=== PATIENT | female | born 1935 | race Caucasian/White ===

== ENCOUNTER → 2016-08-15 | Outpatient (REF) | payer MEDICARE | LOC: M SFHCPLAZ 13:40 | PROVIDERS: ATTEND Dermatology | DX: C44.02 Squamous cell carcinoma of skin of lip (principal); L82.1 Other seborrheic keratosis; C44.320 Squamous cell carcinoma of skin of unspecified parts of face; C44.310 Basal cell carcinoma of skin of unspecified parts of face; D04.39 Carcinoma in situ of skin of other parts of face; C44.629 Squamous cell carcinoma of skin of left upper limb, including shoulder; D23.72 Other benign neoplasm of skin of left lower limb, including hip; B07.8 Other viral warts | CPT/HCPCS: 11100; 11101; 88305; G0463 ==

== ENCOUNTER → 2016-08-29 | Outpatient (REF) | payer MEDICARE | LOC: M LAB REF 16:44 | PROVIDERS: ATTEND Internal Medicine | DX: M19.90 Unspecified osteoarthritis, unspecified site (principal) ==

== ENCOUNTER → 2018-02-04 | Outpatient (REF) | payer MEDICARE ==
[2018-02-04 19:04] LABS: RHEUMATOID FACTOR QUANT < 10.0 IU/ML (<15.0)
[2018-02-04 19:04] LABS: C REACTIVE PROTEIN QUANTITATIV < 0.30 MG/DL (0.00-0.30)
[2018-02-07 14:13] LABS: ANTINUCLEAR ANTIBODIES DIRECT Negative (Negative)
== END ==
LOC: M LAB REF 16:29
DX: M25.561 Pain in right knee (principal); M25.562 Pain in left knee; M15.9 Polyosteoarthritis, unspecified
CPT/HCPCS: 86140

== ENCOUNTER 2018-08-30 18:55 | Emergency (ER) | payer MEDICARE ==
[~2018-08-30] VITALS: Ht 157.5 cm; Wt 82.7 kg
--- NOTE | 2018-08-30 19:39 | REPVR ---
EXAM: CT Head Without Contrast EXAM DATE/TIME: 08/30/2018 7:08 PM CLINICAL HISTORY: 83 years old, female; Injury or trauma; Fall; Initial encounter; Blunt trauma (contusions or hematomas); Consciousness not specified; Additional info: Fall on thinners TECHNIQUE: Imaging protocol: Axial computed tomography images of the head without contrast. Radiation optimization: All CT scans at this facility use at least one of these dose optimization techniques: automated exposure control; mA and/or kV adjustment per patient size (includes targeted exams where dose is matched to clinical indication); or iterative reconstruction. COMPARISON: No relevant prior studies available. FINDINGS: Brain: Global cerebral atrophy is consistent with patient's age. Decreased attenuation within the white matter tracts of both cerebral hemispheres is nonspecific but typically seen with small vessel disease/chronic white matter ischemic changes of aging. No CT scan evidence of acute stroke. No intracranial hemorrhage or mass effect. Ventricles: Unremarkable. No ventriculomegaly. Bones/joints: Unremarkable. No acute fracture. Sinuses: Visualized sinuses are unremarkable. No fluid levels. Mastoid air cells: Visualized mastoid air cells are well aerated. No mastoid effusion. Soft tissues: Unremarkable. Vasculature: Atherosclerosis of the cavernous carotid arteries. IMPRESSION: No acute abnormality. Electronically signed by: Javed Tee On 08/30/2018 19:39:06 PM
[2018-08-30 19:48] LABS: BASO % 0.5 % (0.0-1.0); EOS # 0.2 10^3/uL (0.0-0.50); EOS % 2.9 % (0.0-3.0); HEMATOCRIT 36.3 % (36.0-47.0); HEMOGLOBIN 11.4 g/dl (12.0-15.5); LYMPH # 2.9 10^3/uL (1.5-4.5); LYMPH % 35.6 % (24.0-44.0); MEAN CORPUSCULAR HEMOGLOBIN 29.9 pg (27.0-33.0); MEAN CORPUSCULAR HGB CONC 31.4 g/dl (32.0-36.5); MEAN CORPUSCULAR VOLUME 95.3 fl (80.0-96.0); MONO # 0.6 10^3/uL (0.0-0.8); MONO % 7.5 % (0.0-5.0); NEUTROPHILS # 4.3 10^3/uL (1.8-7.7); NEUTROPHILS % 53.3 % (36.0-66.0); PLATELET COUNT, AUTOMATED 188 10^3/uL (150-450); RED BLOOD COUNT 3.81 10^6/uL (4.00-5.40)
[2018-08-30 19:58] LABS: INR 2.02; PROTHROMBIN TIME 23.2 SECONDS (12.1-14.4)
[2018-08-30 20:25] LABS: BLOOD UREA NITROGEN 24 MG/DL (7-18); CALCIUM LEVEL 8.6 MG/DL (8.8-10.2); CARBON DIOXIDE LEVEL 29 MEQ/L (21-32); CHLORIDE LEVEL 106 MEQ/L (98-107); CPK CREATINE PHOSPHOKINASE 99 U/L (26-192); CREATININE FOR GFR 0.77 MG/DL (0.55-1.30); ETHYL ALCOHOL (ETHANOL) 0.039 % (0.000-0.010); GLOMERULAR FILTRATION RATE > 60.0 (>32); GLUCOSE, FASTING 82 MG/DL (70-100); MB/CK RELATIVE INDEX 1.52 (< OR =4); POTASSIUM SERUM 4.1 MEQ/L (3.5-5.1); SODIUM LEVEL 142 MEQ/L (136-145); TROPONIN I < 0.02 NG/ML (< 0.10)
[2018-08-30 21:10] VITALS: O2SAT 97
[2018-08-30 21:35] VITALS: BP 146/66
--- NOTE | 2018-08-31 17:49 | ECGEPIP ---
Stationary ECG Study [facility] - ED Test Date: 2018-08-30 Pat Name: MISBAH FRASER Department: Room: - Gender: F Dock Operator: : 1935 Requested By: AKIRA ORTEGA Order Number: [id number] Reading MD: oRdy Lopez Measurements Intervals [place] Rate: 61 P: 70 ID: 215 QRS: 0 QRSD: 102 T: 16 QT: 409 QTc: 413 Interpretive Statements SINUS RHYTHM WITH FIRST DEGREE AV BLOCK NSTTW ABNORMALITY NO PRIOR FOR COMPARISON Electronically Signed On 08-31-2018 17:49:05 EDT by Rody Lopez
== END 2018-08-30 21:37 | disposition home or self-care (01) ==
LOC: M ED 18:55
DX: S00.83XA Contusion of other part of head, initial encounter (principal); W19.XXXA Unspecified fall, initial encounter; Y92.019 Unspecified place in single-family (private) house as the place of occurrence of the external cause
CPT/HCPCS: 70450; 80048; 82550; 82553; 84443; 84484; 85025; 85610; 93005; 93041; 94760; 99285; G0480

== ENCOUNTER → 2018-09-02 | Outpatient (REF) | payer MEDICARE | LOC: M LAB REF 12:17 | PROVIDERS: ATTEND Internal Medicine | DX: N39.0 Urinary tract infection, site not specified (principal) ==

== ENCOUNTER → 2019-10-29 | Outpatient (CLI) | payer MEDICARE ==
[~2019-10-29] MED LIST: E-Z-GAS II EFFERVESCENT PACKET (SODIUM BICARB./CITRIC ACID/SIMETHICONE) As Ordered ONE; E-Z-HD 98% w/w 340GM SUSP BTL As Ordered ONE; E-Z-PAQUE 96% w/w SUSP 176GM BTL As Ordered ONE
--- NOTE | 2019-10-29 16:51 | REP ---
Examination Requested: Upper G.I. Series With KUB Reason For Exam: Dysphasia Upper GI Air Contrast The procedure was performed by GAYE Jeter, under the direct supervision of Dr. Schofield. The images were reviewed with Dr. Schofield. The cupola mechanic film shows no organomegaly or pathological masses. The intestinal gas pattern appears normal. Liquid barium and gas producing crystals were given in the erect position as well as liquid barium in the prone oblique position in order to perform a double contrast upper GI examination. The oral and pharyngeal stages of deglutition were unremarkable. Esophageal transport is efficient and there is no esophagitis, stricture, or mucosal ring noted. However tertiary waves were visualized during this exam. There is no hiatal hernia. Gastroesophageal reflux was not visualized during the exam. The stomach witt are normally outlined. The rugal folds are smooth and regular. There is no gastritis, neoplasm, ulcer disease noted. The duodenal witt are normally outlined. The mucosal folds are smooth and regular. There is no duodenitis, peptic ulcer disease, or neoplasm noted. The visualized portion of the proximal small bowel appears normal in course and caliber. Impression: 1. Tertiary waves were visualized during this otherwise unremarkable upper GI. 0.5 minutes of fluoroscopy time was utilized for this procedure. Some fluoroscopic images are performed with last image hold technology. These images require no additional radiation. Reviewed by GAYE Munguia 10/29/2019 04:26 P Electronically Signed by Ru Schofield MD 10/29/2019 04:43 P
== END ==
LOC: M RAD 09:53
PROVIDERS: ATTEND Internal Medicine
DX: R13.10 Dysphagia, unspecified (principal)

== ENCOUNTER 2020-03-16 07:15 | Inpatient (IN) | payer MEDICARE ==
[~2020-03-16] VITALS: Ht 157.5 cm; Wt 78.2 kg
--- NOTE | 2020-03-16 08:03 | REP ---
INDICATION: DYSPNEA/COUGH. COMPARISON: Comparison chest x-ray September 06, 2015.. TECHNIQUE: Sitting AP portable radiograph. FINDINGS: Oxygen delivery tubing and monitoring electrodes overlie the chest. Mild cardiac enlargement is seen unchanged. The aorta is calcific and slightly tortuous. There are patchy interstitial infiltrates bilaterally. No pleural effusion is seen. No significant bony abnormality is appreciated. IMPRESSION: Patchy interstitial infiltrates noted bilaterally. Pattern is consistent with viral pneumonia. Interstitial edema is considered less likely. Heart size is mildly prominent but unchanged. <Electronically signed by Masoud Mayfield > 03/16/20 0755
[2020-03-16 08:39] LABS: BASO % 0.3 % (0.0-1.0); EOS # 0.4 10^3/uL (0.0-0.5); EOS % 3.7 % (0.0-3.0); HEMOGLOBIN 10.3 g/dl (12.0-15.5); LYMPH # 1.8 10^3/uL (1.5-5.0); LYMPH % 16.7 % (24.0-44.0); MEAN CORPUSCULAR HEMOGLOBIN 29.1 pg (27.0-33.0); MEAN CORPUSCULAR HGB CONC 30.3 g/dl (32.0-36.5); MONO % 9.9 % (0.0-5.0); NEUTROPHILS # 7.2 10^3/uL (1.5-8.5); PLATELET COUNT, AUTOMATED 188 10^3/uL (150-450); RED BLOOD COUNT 3.54 10^6/uL (4.00-5.40); WHITE BLOOD COUNT 10.5 10^3/uL (4.0-10.0)
[2020-03-16 08:49] LABS: INR 3.47; PROTHROMBIN TIME 35.7 SECONDS (12.5-14.3)
[2020-03-16] MEDS: DOCUSATE SODIUM 100MG CAPSULE PO SCH ×2 (09:00→20:52)
[2020-03-16 09:10] LABS: ALBUMIN 2.9 GM/DL (3.2-5.2); ALT/SGPT 16 U/L (12-78); BILIRUBIN,DIRECT 0.2 MG/DL (0.0-0.2); BILIRUBIN,TOTAL 0.6 MG/DL (0.2-1.0); BLOOD UREA NITROGEN 20 MG/DL (7-18); CALCIUM LEVEL 8.5 MG/DL (8.8-10.2); CARBON DIOXIDE LEVEL 30 MEQ/L (21-32); CHLORIDE LEVEL 105 MEQ/L (98-107); CK-MB VALUE MASS 1.4 NG/ML (<3.6); CPK CREATINE PHOSPHOKINASE 72 U/L (26-192); CREATININE FOR GFR 0.96 MG/DL (0.55-1.30); GLOMERULAR FILTRATION RATE 59.2 (>32); GLUCOSE, FASTING 95 MG/DL (70-100); MB/CK RELATIVE INDEX 1.94 (< OR =4); NT-PRO BNP 7498 PG/ML (<450); POTASSIUM SERUM 3.5 MEQ/L (3.5-5.1); SODIUM LEVEL 141 MEQ/L (136-145); THYROXINE (T4) 5.5 UG/DL (4.5-12.0); TROPONIN I < 0.02 NG/ML (< 0.10)
--- NOTE | 2020-03-16 10:33 | REP ---
INDICATION: shortness of breath COMPARISON: None TECHNIQUE: Axial noncontrast images from the thoracic inlet to the upper abdomen with coronal and sagittal reformations. This CT examination was performed using the following dose reduction techniques: Automated exposure control, adjustment of mA and/or kv according to the patient's size, and use of iterative reconstruction technique. FINDINGS: Diffuse moderate to significant patchy bilateral alveolar infiltrates along with reactive adenopathy most compatible with multifocal pneumonia. No effusion. No pneumothorax. Tracheobronchial tree is patent. Significant atherosclerotic changes to the thoracic aorta and coronary arteries noted along with cardiomegaly. No pericardial effusion. There is a small fat containing Bochdalek's hernia along the right posterior diaphragmatic surface. Osseous structures demonstrate degenerative changes without acute abnormality. Limited upper abdomen demonstrates normal bilateral adrenal glands. Skeletal structures demonstrate significant chronic appearing vertebral body compression fractures at T10 and and T12 unchanged compared to chest x-ray dated 2016. IMPRESSION: 1. Multifocal pneumonia with reactive adenopathy. 2. Chronic cardiomegaly and atherosclerotic disease. 3. Small chronic Bochdalek's hernia along the right posterior diaphragmatic surface. 4. 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 <Electronically signed by Selvin Gelelr > 03/16/20 0268
[2020-03-16] MEDS ORDERED: GINK60CA2 PO (10:40)
[2020-03-16] MEDS ORDERED: EMOL85CR TOP (10:40)
[2020-03-16] MEDS ORDERED: POTA10TA17 PO (10:40)
[2020-03-16] MEDS ORDERED: OMEP1CAP73 PO (10:40)
[2020-03-16] MEDS ORDERED: D31000TA2 PO (10:40)
[2020-03-16] MEDS ORDERED: BIOTENE PO (10:40)
[2020-03-16] MEDS ORDERED: ASPE4LIQ TOP (10:40)
[2020-03-16] MEDS ORDERED: FURO20TA2 PO (10:40)
[2020-03-16] MEDS ORDERED: MIRA3350 PO (10:40)
[2020-03-16] MEDS ORDERED: XALA0.007 OS (10:40)
[2020-03-16] MEDS ORDERED: TYLE650T38 PO (10:40)
[2020-03-16] MEDS ORDERED: CRAN400C PO (10:40)
[2020-03-16] MEDS ORDERED: CALCCAP4 PO (10:40)
[2020-03-16] MEDS ORDERED: FLUO20CA22 PO (10:40)
[2020-03-16] MEDS ORDERED: WARF4TAB51 PO ×2 (10:40)
[2020-03-16] MEDS ORDERED: BISO5TAB14 PO (10:40)
[2020-03-16] MEDS ORDERED: GABA-843 PO (10:40)
[2020-03-16] MEDS ORDERED: CETI-24 PO (10:40)
[2020-03-16] MEDS ORDERED: GABA-1171 PO (10:40)
[2020-03-16] MEDS ORDERED: FUROSEMIDE 40MG/4ML VIAL (J1940) IV ONE (10:45)
[2020-03-16] MEDS ORDERED: LevoFLOXacin IV 750 MG in IV 1 EA IV ONE (10:45)
[2020-03-16] MEDS ORDERED: MOM 30ML SUSPENSION UDC PO PRN (11:00)
[2020-03-16] MEDS ORDERED: ACETAMINOPHEN TAB 650MG DOSE (2X325MG) PO PRN (11:00)
[2020-03-16] MEDS ORDERED: MAALOX 30 ML SUSP *UDC PO PRN (11:00)
[2020-03-16 16:00] VITALS: BP 128/73
[2020-03-16] MEDS ORDERED: WARFARIN SOD 2MG TAB PO ONE (17:00)
--- NOTE | 2020-03-16 17:03 | ECGEPIP ---
[facility] - ED Test Date: 2020-03-16 Pat Name: MISBAH FRASER Department: Room: - Gender: Female Escrow Processor: : 1935 Requested By: JAYLEEN Rodriguez Order Number: [id number] Reading MD: Rody Lopez Measurements Intervals [place] Rate: 86 P: [place]: 0 QRS: -5 QRSD: 103 T: 22 QT: 398 QTc: 478 Interpretive Statements ATRIAL FIBRILLATION ABNORMAL RHYTHM ECG NSTTW abnormalities PRIOR SINUS RHYTHM 08/30/18 Electronically Signed on 03-16-2020 17:02:40 EST by Rody Lopez
--- NOTE | 2020-03-16 17:12 | HPEPDOC ---
[facility] Medical History & Physical Date of Admission Mar 16, 2020 Date of Service: Mar 16, 2020 Attending Physician: HIMANSHU SOUZA MD History and Physical CHIEF COMPLAINT: shortness of breath HISTORY OF PRESENT ILLNESS: Jojo Pal is an 84 year old female who presented to the ED today due to worsening shortness of breath. She is a relatively poor historian and has trouble giving me a timeline or description of her symptoms. She states she has been short of breath for months. She states she gets short of breath on exertion such as walking to the bathroom. She endorses orthopnea and PND. She denies cough, although the ED provider elicited a history of productive cough. She does note some feeling of mucous stuck in her chest. Reports some epigastric pain when laying down on her bed at night which she attributes to positioning and back pain from prior vertebral fractures. History is partial obtained from chart review as patient is a poor historian. PAST MEDICAL HISTORY: 1. Atrial fibrillation on coumadin 2. Hypertension 3. Hyperlipidemia 4. Anemia 5. Depression 6. Arthritis 7. Pulmonary fibrosis 8. Diverticulosis 9. Neurogenic bladder with chronic asymptomatic bacteremia 10. Osteoporosis 11. Cognitive impairment 12. 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 Hysterectomy 2. Rectal Fissure 3. Skin CA removal SOCIAL HISTORY: Current nonsmoker, smoked some unknown amount when younger. Drinks liquor on a regular basis, unable to quantify how much. FAMILY HISTORY: Mother of ovarian cancer. ALLERGIES: Please see below. REVIEW OF SYSTEMS: REVIEW OF SYSTEMS: CONSTITUTIONAL: Denies fevers, chills, night sweats, fatigue, unexpected change in weight. HEENT: Denies change in vision, change in hearing. CARDIOVASCULAR: Denies palpitations, lightheadedness. RESPIRATORY: Denies cough, wheezing. GASTROINTESTINAL: Denies nausea, vomiting, diarrhea, constipation, blood in stool. GENITOURINARY: Denies dysuria, urinary frequency, urinary urgency. SKIN: Denies rash, lesions. MUSCULOSKELETAL: Endorses chronic back pain from prior vertebral fractures. NEUROLOGICAL: Denies headache, dizziness, weakness. PSYCHIATRIC: Denies change in mood. HOME MEDICATIONS: Please see below. PHYSICAL EXAMINATION: VITAL SIGNS: See below GENERAL: Alert, comfortable, in no acute distress HEENT: Normocephalic, atraumatic, EOMI, moist mucous membranes NECK: Supple, trachea midline, no lymphadenopathy, no JVD appreciated. CARDIOVASCULAR: Regular rate. Irregularly irregular rhythm, normal S1 and S2. No murmurs, rubs, or gallops RESPIRATORY: Breath sounds diminished at bilateral lung bases. No wheezing, rhonchi, or rales appreciated. ABDOMEN: Obese, soft, nontender, nondistended, bowel sounds present, no masses or hepatosplenomegaly appreciated EXTREMITIES: Bilateral 1+ pitting edema up to the knees. Pulses 2+/4 in bilateral upper and lower extremities. SKIN: [place], warm, dry NEUROLOGIC: Alert and oriented x3 to person, place, and time. No focal deficits appreciated PSYCHIATRIC: Mood and affect appropriate LABORATORY DATA: See below. IMAGING: - CXR : Patchy interstitial infiltrates noted bilaterally. Pattern is consistent with viral pneumonia. Interstitial edema is considered less likely. Heart size is mildly prominent but unchanged. - Chest CT: 1. Multifocal pneumonia with reactive adenopathy. 2. Chronic cardiomegaly and atherosclerotic disease. 3. Small chronic Bochdalek's hernia along the right posterior diaphragmatic surface. 4. 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 MICROBIOLOGY: Please see below. ASSESSMENT: 84-year-old female with a history of atrial fibrillation on warfarin, CHF, pulmonary fibrosis who presented with worsening shortness of breath found to have elevated BNP and interstitial infiltrates concerning for acute CHF exacerbation vs atypical PNA admitted for further evaluation and treatment. PLAN: 1. Shortness of breath likely 2/2 acute on chronic CHF, less likely pulm fibrosis progression vs atypical PNA - procalcitonin low, bacterial PNA unlikely. resp panel negative. blood cultures x2 and sputum culture pending. No antibiotics at this time. - atypical PNA workup pending including legionella, mycoplasma, and chlamydia. - BNP elevated at 7498, no baseline to compare - echocardiogram ordered to assess her degree of CHF and optimize treatment. - continuous pulse ox and telemetry monitoring. - IV lasix 40mg BID with goal of net negative 1.5-2 L/day 2. CHF - unclear etiology, no prior echo to review if systolic or diastolic - obtain echo as noted above. - 2 liter fluid restriction with low sodium diet - monitor I&O daily. daily weights. - IV lasix as noted above 3. Pulmonary fibrosis - on patient's medical history, but she is not maintained on any inhalers - minimal smoking hx per patient - if symptoms do not improve with IV lasix, consider steroids for exacerbation of these conditions. 4. Epigastric pain - functional pain from positioning vs worsened GERD. Increase PPI to 40mg omeprazole. 5. Neurogenic bladder with chronic catheter - Morin catheter while inpatient - UA chronically appears infected, would not treat with antibiotics as she has no UTI symptoms 6. Chronic atrial fibrillation - Rate controlled - Continue warfarin, monitor INR to maintain 2.0-3.0 - Hold Zebeta in the setting of acute CHF 7. Chronic anemia - trend H/H daily. consider transfusion for Hg<7 - check iron studies in the morning 8. Depression/anxiety - continue home fluoxetine and gabapentin DVT Prophylaxis: full anticoagulation on warfarin as noted above DISPOSITION: admitted inpatient to med/surg, expect > 2 midnight stay Vital Signs Vital Signs Date Time Temp Pulse Resp B/P (MAP) Pulse Ox O2 Delivery O2 Flow Rate FiO2 03/16/20 14:08 98.1 94 22 179/74 (109) 97 Nasal Cannula 1.5 Laboratory Data Labs 24H Laboratory Tests 2 03/16/20 08:15: Procalcitonin <0.05 03/16/20 08:16: Immature Granulocyte % (Auto) 0.4, Neutrophils (%) (Auto) 69.0H, Lymphocytes (%) (Auto) 16.7L, Monocytes (%) (Auto) 9.9H, Eosinophils (%) (Auto) 3.7H, Basophils (%) (Auto) 0.3, Neutrophils # (Auto) 7.2, Lymphocytes # (Auto) 1.8, Monocytes # (Auto) 1.0H, Eosinophils # (Auto) 0.4, Basophils # (Auto) 0.0, Nucleated Red Blood Cells % (auto) 0.0, Prothrombin Time 35.7H, Prothromb Time International Ratio 3.47, Anion Gap 6L, Glomerular Filtration Rate 59.2, Lactic Acid Level 1.2, Calcium Level 8.5L, Total Bilirubin 0.6, Direct Bilirubin 0.2, Aspartate Amino Transf (AST/SGOT) 15, Alanine Aminotransferase (ALT/SGPT) 16, Alkaline Phosphatase 86, Total Creatine Kinase 72, Creatine Kinase MB 1.4, Creatine Kinase MB Relative Index 1.94, Troponin I < 0.02, IF-Dxr-I-Type Natriuretic Peptide 7498H, Total Protein 7.0, Albumin 2.9L, Albumin/Globulin Ratio 0.7L, Thyroid Stimulating Hormone (TSH) 2.070, Thyroxine (T4) 5.5 03/16/20 11:20: Urine Color YELLOW, Urine Appearance CLOUDYH, Urine pH 6.0, Urine Specific [place] 1.011, Urine Protein NEGATIVE, Urine Glucose (UA) NEGATIVE, Urine Ketones NEGATIVE, Urine Blood 1+H, Urine Nitrite POSITIVEH, Urine Bilirubin NEGATIVE, Urine Urobilinogen 0.2, Urine Leukocyte Esterase 3+H, Urine WBC (Auto) 127H, Urine RBC (Auto) 9H, Urine Hyaline Casts (Auto) 3, Urine Bacteria (Auto) 2+H, Urine Squamous Epithelial Cells 1, Urine Mucus (Auto) SMALL, Urine Sperm (Auto) CBC/BMP Laboratory Tests 03/16/20 08:16 Microbiology Microbiology 03/16/20 Urine Culture, Received Pending 03/16/20 Blood Culture, Received Pending 03/16/20 Respiratory Virus Panel (PCR) (LENNOX) - Final, Complete 03/16/20 Blood Culture, Received Pending Home Medications Scheduled Acetaminophen (Tylenol 8 Hour) 650 Mg Tablet.er, 650 MG PO BID Bisoprolol Fumarate (Bisoprolol Fumarate) 5 Mg Tablet, 2.5 MG PO QHS Calcium Carbonate/Vitamin D3 (Calcium 600 + Vit D 400 Softgl) 1 Each Capsule, 1 CAP PO BID Cetirizine HCl (Cetirizine HCl) 10 Mg Tablet, 10 MG PO QHS Cholecalciferol (Vitamin D3) (Vitamin D3) 1,000 Unit Tablet, 4,000 UNITS PO DAILY Ciprofloxacin HCl (Ciprofloxacin HCl) 500 Mg Tablet, 500 MG PO BID Cranberry (Cranberry) 400 Mg Capsule, 400 MG PO DAILY Emollient Combination No.114 (Eucerin Advanced Repair) 85 Gm Cream..g., 1 DOSE TOP DAILY Fluoxetine Hcl (Fluoxetine HCl) 20 Mg Capsule, 20 MG PO QHS Furosemide (Furosemide) 40 Mg Tablet, 40 MG PO BID Gabapentin (Gabapentin) 100 Mg Capsule, 100 MG PO QAM Gabapentin (Gabapentin) 300 Mg Capsule, 300 MG PO QHS Ginkgo Biloba (Ginkgo Biloba) 60 Mg Capsule, 120 MG PO DAILY Latanoprost (Xalatan) 0.005% 2.5ML Drops, 1 DROP OS QHS Omeprazole (Omeprazole) 20 Mg Capsule.dr, 20 MG PO QHS Potassium Chloride (Potassium Chloride) 10 Meq Tab.er.prt, 10 MEQ PO DAILY Warfarin Sodium (Warfarin Sodium) 2 Mg Tablet, 2 MG PO DAILY Scheduled PRN Lidocaine HCl (Aspercreme Lidocaine) 73 Ml Liqd.estefany, 1 DOSE TOP QID PRN for PAIN APPLY TO AREAS OF PAIN Polyethylene Glycol 3350 (Miralax) 119 Gm Powder, 17 GM PO DAILY PRN for CONSTIPATION [Biotene] , 1 LOZENGE PO PRN PRN for DRY MOUTH Allergies Coded Allergies: No Known Allergies (Verified Allergy, Unknown, 08/30/18) A-FIB/CHADSVASC A-FIB History Current/History of A-Fib/PAF?: Yes Current PO Anticoag Therapy: Yes GME ATTESTATION GME ATTESTATION My faculty preceptor for this patient encounter was physically present during the encounter and was fully available. All aspects of the patient interview, examination, medical decision making process, and medical care plan development were reviewed and approved by the faculty preceptor. The faculty preceptor is aware and concurs with the plan as stated in the body of this note and will attest to such by his/her cosignature. ATTENDING NOTE Pt was seen and examined at the bedside with the residents/students at the bedside by me personally. Agree with the assessment and plan. EDGAR BETTS D.O. Mar 16, 2020 15:56 HIMANSHU SOUZA MD Mar 22, 2020 11:15
[2020-03-16] MEDS: FUROSEMIDE 40MG/4ML VIAL (J1940) IV SCH (17:37)
[2020-03-16] MEDS: GABAPENTIN 300 MG CAP PO SCH (20:52)
[2020-03-16] MEDS: FLUoxetine 20 MG CAP PO SCH (20:52)
[2020-03-16] MEDS: CETIRIZINE (ZyrTEC) 10 MG TAB PO SCH (20:52)
[2020-03-16 22:00] VITALS: BP 133/78
[2020-03-17 06:00] VITALS: BP 133/54
[2020-03-17 07:39] LABS: INR 3.42; PROTHROMBIN TIME 35.3 SECONDS (12.5-14.3)
[2020-03-17 07:40] LABS: HEMATOCRIT 38.5 % (36.0-47.0); HEMOGLOBIN 11.9 g/dl (12.0-15.5); MEAN CORPUSCULAR HEMOGLOBIN 29.7 pg (27.0-33.0); MEAN CORPUSCULAR HGB CONC 30.9 g/dl (32.0-36.5); PLATELET COUNT, AUTOMATED 221 10^3/uL (150-450); RED BLOOD COUNT 4.01 10^6/uL (4.00-5.40); WHITE BLOOD COUNT 11.8 10^3/uL (4.0-10.0)
[2020-03-17 07:59] LABS: ALBUMIN 3.1 GM/DL (3.2-5.2); ALT/SGPT 14 U/L (12-78); BILIRUBIN,TOTAL 0.9 MG/DL (0.2-1.0); BLOOD UREA NITROGEN 16 MG/DL (7-18); CALCIUM LEVEL 8.4 MG/DL (8.8-10.2); CARBON DIOXIDE LEVEL 30 MEQ/L (21-32); CHLORIDE LEVEL 99 MEQ/L (98-107); CREATININE FOR GFR 0.94 MG/DL (0.55-1.30); FERRITIN 82 NG/ML (8-252); GLOMERULAR FILTRATION RATE > 60.0 (>32); GLUCOSE, FASTING 75 MG/DL (70-100); IRON (FE) 26 UG/DL (50-170); PERCENT SATURATION 9.2 % (13.2-45.0); POTASSIUM SERUM 3.4 MEQ/L (3.5-5.1); SODIUM LEVEL 140 MEQ/L (136-145); TOTAL IRON BINDING CAPACITY 282 UG/DL (250-450); TOTAL PROTEIN 7.1 GM/DL (6.4-8.2)
[2020-03-17] MEDS: GABAPENTIN 100 MG CAP PO SCH (08:05)
[2020-03-17] MEDS: OMEPRAZOLE 20 MG CAP PO SCH (08:05)
[2020-03-17] MEDS: DOCUSATE SODIUM 100MG CAPSULE PO SCH ×2 (08:05→20:11)
[2020-03-17] MEDS: POTASSIUM CHLORIDE 10 MEQ SR TABLET PO SCH (08:05)
[2020-03-17] MEDS: FUROSEMIDE 40MG/4ML VIAL (J1940) IV SCH (08:06)
[2020-03-17] MEDS ORDERED: POTASSIUM CHLORIDE 10 MEQ SR TABLET PO ONE (09:15)
--- NOTE | 2020-03-17 11:14 | IPNPDOC ---
Text Note Date of Service The patient was seen on 03/17/20. NOTE SUBJECTIVE: Patient was seen and examined this morning at beside. She states her shortness of breath is improved from yesterday. She has not noticed any change in her lower extremity swelling. OBJECTIVE: VITAL SIGNS: See below GENERAL: Alert, comfortable, in no acute distress HEENT: Normocephalic, atraumatic, EOMI, moist mucous membranes NECK: Supple, trachea midline, no lymphadenopathy, no JVD appreciated. CARDIOVASCULAR: Regular rate. Irregularly irregular rhythm, normal S1 and S2. No murmurs, rubs, or gallops RESPIRATORY: Breath sounds diminished at bilateral lung bases, improved from yesterday. No wheezing, rhonchi, or rales appreciated. ABDOMEN: Obese, soft, nontender, nondistended, bowel sounds present, no masses or hepatosplenomegaly appreciated EXTREMITIES: Bilateral 1+ pitting edema up to the knees. Pulses 2+/4 in bi lateral upper and lower extremities. NEUROLOGIC: Alert and oriented x3 to person, place, and time. No focal deficits appreciated PSYCHIATRIC: Mood and affect appropriate ASSESSMENT/PLAN: 84-year-old female with a history of atrial fibrillation on warfarin, CHF, pulmonary fibrosis who presented with worsening shortness of breath found to have elevated BNP and interstitial infiltrates concerning for acute CHF exacerbation vs atypical PNA admitted for further evaluation and treatment. # Shortness of breath likely 2/2 acute on chronic CHF, less likely pulm fibrosis progression vs atypical PNA - procalcitonin low, bacterial PNA unlikely. resp panel negative. blood cultures x2 pending. No antibiotics at this time. - atypical PNA workup pending including legionella, mycoplasma, and chlamydia. - BNP elevated at 7498, no baseline to compare - echocardiogram ordered to assess her degree of CHF and optimize treatment. - continuous pulse ox and telemetry monitoring. - IV lasix 40mg daily with goal of net negative 1.5-2 L/day # CHF - unclear etiology, no prior echo to review if systolic or diastolic - obtain echo as noted above. - 2 liter fluid restriction with low sodium diet - monitor I&O daily. daily weights. - IV lasix as noted above # Pulmonary fibrosis - on patient's medical history, but she is not maintained on any inhalers - minimal smoking hx per patient - if symptoms do not improve with IV lasix, consider steroids for exacerbation of these conditions. # Epigastric pain - functional pain from positioning vs worsened GERD. Increase PPI to 40mg om eprazole. # Neurogenic bladder with chronic catheter - Morin catheter while inpatient - UA chronically appears infected, would not treat with antibiotics as she has no UTI symptoms # Chronic atrial fibrillation - Rate controlled - hold warfarin as her INR is supratherapeutic, monitor INR to maintain 2.0-3.0 - Hold Zebeta in the setting of acute CHF # Chronic anemia - trend H/H daily. consider transfusion for Hg<7 - check iron studies in the morning # Depression/anxiety - continue home fluoxetine and gabapentin DVT Prophylaxis: full anticoagulation on warfarin as noted above DISPOSITION: pending echocardiogram results, PT eval VS,Fishbone, I+O VS, Fishbone, I+O Laboratory Tests 03/17/20 06:49 Vital Signs Date Time Temp Pulse Resp B/P (MAP) Pulse Ox O2 Delivery O2 Flow Rate FiO2 03/17/20 08:00 2.0 03/17/20 06:00 98.2 88 18 133/54 (80) 90 Nasal Cannula I&O- Last 24 Hours up to 6 AM 03/17/20 06:00 Intake Total 1020 ml Output Total 3625 ml Balance -2605 ml GME ATTESTATION GME ATTESTATION My faculty preceptor for this patient encounter was physically present during the encounter and was fully available. All aspects of the patient interview, examination, medical decision making process, and medical care plan development were reviewed and approved by the faculty preceptor. The faculty preceptor is aware and concurs with the plan as stated in the body of this note and will attest to such by his/her cosignature. ATTENDING NOTE Pt was seen and examined at the bedside with the residents/students at the bedside by me personally. Agree with the assessment and plan. EDGAR BETTS D.O. Mar 17, 2020 11:14 HIMANSHU SOUZA MD Mar 22, 2020 11:18
[2020-03-17 14:00] VITALS: BP 136/63
[2020-03-17] MEDS ORDERED: WARFARIN SOD 2MG TAB PO SCH (17:00)
[2020-03-17] MEDS: GABAPENTIN 300 MG CAP PO SCH (20:10)
[2020-03-17] MEDS: MIRALAX *UNIT DOSE* 17GM PACKET PO SCH (20:10)
[2020-03-17] MEDS: FLUoxetine 20 MG CAP PO SCH (20:10)
[2020-03-17] MEDS: CETIRIZINE (ZyrTEC) 10 MG TAB PO SCH (20:10)
--- NOTE | 2020-03-17 21:04 | REP ---
INDICATION: abdominal discomfort, fluid overload. Rule out ascites. COMPARISON: None. TECHNIQUE: Four quadrant abdominal survey for ascites. FINDINGS: Four quadrant abdominal survey sonography shows no evidence of visible ascites. IMPRESSION: No ascites seen. <Electronically signed by Masoud Mayfield > 03/17/20 2100
[2020-03-17 22:00] VITALS: BP 124/73
[2020-03-18 06:00] VITALS: BP 105/53
[2020-03-18 06:03] LABS: HEMATOCRIT 35.1 % (36.0-47.0); HEMOGLOBIN 10.8 g/dl (12.0-15.5); MEAN CORPUSCULAR HGB CONC 30.8 g/dl (32.0-36.5); MEAN CORPUSCULAR VOLUME 94.1 fl (80.0-96.0); PLATELET COUNT, AUTOMATED 201 10^3/uL (150-450); RED BLOOD COUNT 3.73 10^6/uL (4.00-5.40); WHITE BLOOD COUNT 10.1 10^3/uL (4.0-10.0)
[2020-03-18 06:22] LABS: INR 3.21; PROTHROMBIN TIME 33.6 SECONDS (12.5-14.3)
[2020-03-18 06:28] LABS: ALBUMIN 2.7 GM/DL (3.2-5.2); ALT/SGPT 13 U/L (12-78); BILIRUBIN,TOTAL 0.9 MG/DL (0.2-1.0); BLOOD UREA NITROGEN 19 MG/DL (7-18); CALCIUM LEVEL 8.7 MG/DL (8.8-10.2); CARBON DIOXIDE LEVEL 33 MEQ/L (21-32); CHLORIDE LEVEL 102 MEQ/L (98-107); CREATININE FOR GFR 0.91 MG/DL (0.55-1.30); GLOMERULAR FILTRATION RATE > 60.0 (>32); GLUCOSE, FASTING 92 MG/DL (70-100); POTASSIUM SERUM 3.5 MEQ/L (3.5-5.1); SODIUM LEVEL 139 MEQ/L (136-145); TOTAL PROTEIN 6.4 GM/DL (6.4-8.2)
--- NOTE | 2020-03-18 09:14 | IPNPDOC ---
Text Note Date of Service The patient was seen on 03/18/20. NOTE SUBJECTIVE: Patient was seen and examined this morning at beside. She reports some improvement of her shortness of breath. Her daughter is at besides and we discussed the plan of care moving forward. OBJECTIVE: VITAL SIGNS: See below GENERAL: Alert, comfortable, in no acute distress HEENT: Normocephalic, atraumatic, EOMI, moist mucous membranes NECK: Supple, trachea midline, no lymphadenopathy, no JVD appreciated. CARDIOVASCULAR: Regular rate. Irregularly irregular rhythm, normal S1 and S2. No murmurs, rubs, or gallops RESPIRATORY: Breath sounds diminished at bilateral lung bases, improved from yesterday. No wheezing, rhonchi, or rales appreciated. ABDOMEN: Obese, soft, nontender, nondistended, bowel sounds present, no masses or hepatosplenomegaly appreciated EXTREMITIES: Bilateral 1+ pitting edema up to the knees. Pulses 2+/4 in bilateral upper and lower extremities. NEUROLOGIC: No focal deficits appreciated PSYCHIATRIC: Mood and affect appropriate ASSESSMENT/PLAN: 84-year-old female with a history of atrial fibrillation on warfarin, CHF, pulmonary fibrosis who presented with worsening shortness of breath found to have elevated BNP and interstitial infiltrates concerning for acute CHF exacer bation vs atypical PNA admitted for further evaluation and treatment. # Shortness of breath likely 2/2 acute on chronic CHF, less likely pulm fibrosis progression vs atypical PNA - procalcitonin low, bacterial PNA unlikely. resp panel negative. blood cultures x2 pending. No antibiotics at this time. - atypical PNA workup pending including legionella, mycoplasma, and chlamydia. - BNP elevated at 7498, no baseline to compare - echocardiogram ordered to assess her degree of CHF and optimize treatment. - continuous pulse ox and telemetry monitoring. - IV lasix 40mg daily with goal of net negative 1.5-2 L/day # E. coli UTI - daughter reports frequent UTI usually resolves with cipro - will start ciprofloxacin day #1 of 5 # CHF - unclear etiology, no prior echo to review if systolic or diastolic - obtain echo as noted above. - 2 liter fluid restriction with low sodium diet - monitor I&O daily. daily weights. - IV lasix as noted above # Pulmonary fibrosis - daughter reports macrobid enduced. not on any inhalers - f/u outpatient with pulmonology # Dementia - some increased confusions compared to baseline per daughter - speech cog eval. - live at home with . pt does not want halfway or assisted living. PFS consult # Epigastric pain - functional pain from positioning vs worsened GERD. Increase PPI to 40mg omeprazole. # Neurogenic bladder with chronic catheter - Morin catheter while inpatient, will trial straight cath prior to discharge # Chronic atrial fibrillation - Rate controlled, restart Zebeta - hold warfarin as her INR is supratherapeutic, monitor INR to maintain 2.0-3.0 # Chronic anemia - trend H/H daily. consider transfusion for Hg<7 - likely anemia of chronic disease based on iron studies # Depression/anxiety - continue home fluoxetine and gabapentin DVT Prophylaxis: full anticoagulation on warfarin as noted above DISPOSITION: pending echocardiogram results, PT eval, speech cog eval VS,Fishbone, I+O VS, Fishbone, I+O Laboratory Tests 03/18/20 05:45 Vital Signs Date Time Temp Pulse Resp B/P (MAP) Pulse Ox O2 Delivery O2 Flow Rate FiO2 03/18/20 06:00 98.4 116 18 105/53 (70) 93 Nasal Cannula 2.0 I&O- Last 24 Hours up to 6 AM 03/18/20 06:00 Intake Total 1340 ml Output Total 825 ml Balance 515 ml EDGAR BETTS D.O. Mar 18, 2020 09:14
[2020-03-18] MEDS: CIPROFLOXACIN 500MG TABLET PO SCH ×2 (09:33→20:09)
[2020-03-18] MEDS: MIRALAX *UNIT DOSE* 17GM PACKET PO SCH (09:33)
[2020-03-18] MEDS: POTASSIUM CHLORIDE 10 MEQ SR TABLET PO SCH (09:34)
[2020-03-18] MEDS: DOCUSATE SODIUM 100MG CAPSULE PO SCH ×2 (09:34→20:09)
[2020-03-18] MEDS: OMEPRAZOLE 20 MG CAP PO SCH (09:34)
[2020-03-18] MEDS: GABAPENTIN 100 MG CAP PO SCH (09:34)
[2020-03-18 12:00] VITALS: O2SAT 91
[2020-03-18 14:00] VITALS: BP 119/59
[2020-03-18] MEDS ORDERED: FUROSEMIDE 40MG/4ML VIAL (J1940) IV ONE (16:15)
[2020-03-18] MEDS: CETIRIZINE (ZyrTEC) 10 MG TAB PO SCH (20:09)
[2020-03-18] MEDS: FLUoxetine 20 MG CAP PO SCH (20:09)
[2020-03-18] MEDS: GABAPENTIN 300 MG CAP PO SCH (20:09)
[2020-03-18 20:10] VITALS: BP 131/75
[2020-03-18] MEDS ORDERED: BISOPROLOL FUM 2.5 MG PER 1/2TAB PO SCH (21:00)
[2020-03-18 22:00] VITALS: BP 133/58
[2020-03-19 06:00] VITALS: BP 129/82
[2020-03-19 06:07] LABS: HEMATOCRIT 37.1 % (36.0-47.0); HEMOGLOBIN 11.5 g/dl (12.0-15.5); MEAN CORPUSCULAR HEMOGLOBIN 29.5 pg (27.0-33.0); MEAN CORPUSCULAR VOLUME 95.1 fl (80.0-96.0); PLATELET COUNT, AUTOMATED 217 10^3/uL (150-450); WHITE BLOOD COUNT 11.2 10^3/uL (4.0-10.0)
[2020-03-19 06:18] LABS: INR 2.56; PROTHROMBIN TIME 28.1 SECONDS (12.5-14.3)
[2020-03-19 06:40] LABS: ALBUMIN 2.6 GM/DL (3.2-5.2); ALT/SGPT 13 U/L (12-78); BILIRUBIN,TOTAL 0.7 MG/DL (0.2-1.0); BLOOD UREA NITROGEN 21 MG/DL (7-18); CALCIUM LEVEL 8.2 MG/DL (8.8-10.2); CARBON DIOXIDE LEVEL 33 MEQ/L (21-32); CHLORIDE LEVEL 101 MEQ/L (98-107); CREATININE FOR GFR 0.92 MG/DL (0.55-1.30); GLOMERULAR FILTRATION RATE > 60.0 (>32); GLUCOSE, FASTING 101 MG/DL (70-100); POTASSIUM SERUM 3.4 MEQ/L (3.5-5.1); SODIUM LEVEL 140 MEQ/L (136-145)
[2020-03-19] MEDS ORDERED: POTASSIUM CHLORIDE 10 MEQ SR TABLET PO ONE (08:00)
[2020-03-19] MEDS: MIRALAX *UNIT DOSE* 17GM PACKET PO SCH (09:00)
[2020-03-19] MEDS: OMEPRAZOLE 20 MG CAP PO SCH (09:39)
[2020-03-19] MEDS: CIPROFLOXACIN 500MG TABLET PO SCH (09:40)
[2020-03-19] MEDS: POTASSIUM CHLORIDE 10 MEQ SR TABLET PO SCH (09:40)
[2020-03-19] MEDS: GABAPENTIN 100 MG CAP PO SCH (09:40)
[2020-03-19] MEDS: DOCUSATE SODIUM 100MG CAPSULE PO SCH (09:40)
[2020-03-19] MEDS: FUROSEMIDE 40 MG TAB PO SCH ×2 (09:41→16:24)
[2020-03-19] MEDS ORDERED: JANT2TAB PO (11:06)
[2020-03-19] MEDS ORDERED: CIPR-249 PO (11:06)
[2020-03-19] MEDS ORDERED: FURO40TA2 PO ×2 (11:06→15:07)
[2020-03-19] MEDS ORDERED: WARF4TAB51 PO (15:07)
[2020-03-19] MEDS ORDERED: CIPR500T3 PO (15:07)
--- NOTE | 2020-03-19 16:08 | DS.PDOC ---
Discharge Summary General Date of Admission Mar 16, 2020 at 10:52 Date of Discharge 03/19/2020 Primary Care Physician: Joaquina Rivera Attending Physician: HIMANSHU SOUZA MD Discharge Summary PROCEDURES PERFORMED DURING STAY: None. ADMITTING DIAGNOSES: 1. Shortness of breath likely 2/2 acute on chronic CHF, less likely pulm fibrosis progression vs atypical PNA 2. CHF 3. Pulmonary fibrosis 4. Epigastric pain 5. Neurogenic bladder with chronic catheter 6. Chronic atrial fibrillation 7. Chronic anemia 8. Depression/anxiety DISCHARGE DIAGNOSES: 1. Shortness of breath 2/2 exacerbation of CHF, improved 2. CHF 3. Pulmonary fibrosis 4. Epigastric pain, improved 5. Neurogenic bladder with chronic catheter 6. Chronic atrial fibrillation 7. Chronic anemia 8. Depression/anxiety 9. UTI secondary to E.coli COMPLICATIONS/CHIEF COMPLAINT: Atypical Pneumonia/Decompensated Heart Failure. HISTORY OF PRESENT ILLNESS: Jojo Pal is an 84 year old female who p resented to the ED today due to worsening shortness of breath. She is a relatively poor historian and has trouble giving me a timeline or description of her symptoms. She states she has been short of breath for months. She states she gets short of breath on exertion such as walking to the bathroom. She endorses orthopnea and PND. She denies cough, although the ED provider elicited a history of productive cough. She does note some feeling of mucous stuck in her chest. Reports some epigastric pain when laying down on her bed at night which she attributes to positioning and back pain from prior vertebral fractures. In the emergency department, workup revealed an elevated BNP with imaging findi ngs noted above. Hospitalist team was called for admission and further management. HOSPITAL COURSE: Patient was admitted to the hospital, started on IV Lasix for diuresis as she was found to be fluid overloaded due to an exacerbation of CHF. The patient performs intermittent catheterization at home for neurogenic bladder, and a Morin catheter was placed for careful monitoring and patient comfort while on IV diuretics. Procalcitonin level was ordered and found to be low, indicating a very low suspicion for bacterial pneumonia. No antibiotics were continued at that time. Blood cultures 2 were drawn and remained negative for 5 days. Echocardiogram was ordered to evaluate her heart failure and results are noted below. She was maintained on telemetry and found to be in atrial fibrillation with good rate control. The patient's daughter noted that the patient had some confusion compared to her home baseline and additionally was found to have a positive urine culture for E coli. The patient's daughter noted that the patient often presents with confusion when she has a UTI. The patient was started on ciprofloxacin 500 mg twice a day and will complete a 5 day course of this. Over the course of her admission, the patient's shortness of breath improved. She continued to require oxygen via nasal cannula. The patient also worked with physical therapy who deemed it appropriate for the patient to attend rehabilitation prior to discharge home. She'll be discharged on an increased dose of oral Lasix to help maintain her fluid status. During the patient's admission, her INR was also found to be above therapeutic level. Her warfarin was held for the first few days. On 03/19/2020. The patient's warfarin was continued at a dose of 2 mg daily. We will maintain her on this dose and stress levels be rechecked in one week. DISCHARGE MEDICATIONS: Please see below. ALLERGIES: Please see below. PHYSICAL EXAMINATION ON DISCHARGE: VITAL SIGNS: Please see below. GENERAL: Alert, comfortable, in no acute distress HEENT: Normocephalic, atraumatic, EOMI, moist mucous membranes NECK: Supple, trachea midline, no lymphadenopathy, no JVD appreciated. CARDIOVASCULAR: Regular rate. Irregularly irregular rhythm, normal S1 and S2. No murmurs, rubs, or gallops RESPIRATORY: Breath sounds diminished at bilateral lung bases, improved from yesterday. No wheezing, rhonchi, or rales appreciated. ABDOMEN: Obese, soft, nontender, nondistended, bowel sounds present, no masses or hepatosplenomegaly appreciated EXTREMITIES: Bilateral 1+ pitting edema up to the knees. Pulses 2+/4 in bilateral upper and lower extremities. NEUROLOGIC: No focal deficits appreciated PSYCHIATRIC: Mood and affect appropriate LABORATORY DATA: Please see below. IMAGING: - CXR : Patchy interstitial infiltrates noted bilaterally. Pattern is consistent with viral pneumonia. Interstitial edema is considered less likely. Heart size is mildly prominent but unchanged. - Chest CT: 1. Multifocal pneumonia with reactive adenopathy. 2. Chronic cardiomegaly and atherosclerotic disease. 3. Small chronic Bochdalek's hernia along the right posterior diaphragmatic surface. 4. 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 PROGNOSIS: Fair ACTIVITY: As tolerated. DIET: Regular diet DISCHARGE PLAN/DISPOSITION: Discharge to acute rehab unit for further PT/OT prior to return home DISCHARGE INSTRUCTIONS: 1. Follow-up with your PCP in 7-10 days 2. Please take all medications as prescribed 3. If your symptoms return or your condition worsens, please call your PCP or re turn to the ED for further evaluation. ITEMS TO FOLLOWUP ON ON OUTPATIENT: 1. Warfarin dosing was adjusted during hospitalization due to INR above therapeutic levels, please monitor INR 2. Echocardiogram results. DISCHARGE CONDITION: Stable. TIME SPENT ON DISCHARGE: Greater than 35 minutes. Vital Signs/I&Os Vital Signs Date Time Temp Pulse Resp B/P (MAP) Pulse Ox O2 Delivery O2 Flow Rate FiO2 03/19/20 09:00 2.0 03/19/20 06:00 98.3 73 18 129/82 (98) 94 Nasal Cannula I&O- Last 24 Hours up to 6 AM 03/19/20 06:00 Intake Total 655 ml Output Total 1450 ml Balance -795 ml Laboratory Data Labs 24H Laboratory Tests 2 03/19/20 05:46: Nucleated Red Blood Cells % (auto) 0.0, Prothrombin Time 28.1H, Prothromb Time International Ratio 2.56, Anion Gap 6L, Glomerular Filtration Rate > 60.0, Calcium Level 8.2L, Total Bilirubin 0.7, Aspartate Amino Transf (AST/SGOT) 22, Alanine Aminotransferase (ALT/SGPT) 13, Alkaline Phosphatase 78, Total Protein 7.0, Albumin 2.6L, Albumin/Globulin Ratio 0.6L CBC/BMP Laboratory Tests 03/19/20 05:46 Microbiology Microbiology 03/16/20 Urine Culture - Final, Complete Escherichia Coli 03/16/20 Blood Culture - Preliminary, Resulted No Growth after 72 hours. All specime... 03/16/20 Respiratory Virus Panel (PCR) (LENNOX) - Final, Complete 03/16/20 Blood Culture - Preliminary, Resulted No Growth after 72 hours. All specime... Discharge Medications Scheduled Acetaminophen (Tylenol 8 Hour) 650 Mg Tablet.er, 650 MG PO BID, (Reported) Bisoprolol Fumarate (Bisoprolol Fumarate) 5 Mg Tablet, 2.5 MG PO QHS, (Reported) Calcium Carbonate/Vitamin D3 (Calcium 600 + Vit D 400 Softgl) 1 Each Capsule, 1 CAP PO BID, (Reported) Cetirizine HCl (Cetirizine HCl) 10 Mg Tablet, 10 MG PO QHS, (Reported) Cholecalciferol (Vitamin D3) (Vitamin D3) 1,000 Unit Tablet, 4,000 UNITS PO DAILY, (Reported) Ciprofloxacin HCl (Ciprofloxacin HCl) 500 Mg Tablet, 500 MG PO BID Cranberry (Cranberry) 400 Mg Capsule, 400 MG PO DAILY, (Reported) Emollient Combination No.114 (Eucerin Advanced Repair) 85 Gm Cream..g., 1 DOSE TOP DAILY, (Reported) Fluoxetine Hcl (Fluoxetine HCl) 20 Mg Capsule, 20 MG PO QHS, (Reported) Furosemide (Furosemide) 40 Mg Tablet, 40 MG PO BID Gabapentin (Gabapentin) 100 Mg Capsule, 100 MG PO QAM, (Reported) Gabapentin (Gabapentin) 300 Mg Capsule, 300 MG PO QHS, (Reported) Ginkgo Biloba (Ginkgo Biloba) 60 Mg Capsule, 120 MG PO DAILY, (Reported) Latanoprost (Xalatan) 0.005% 2.5ML Drops, 1 DROP OS QHS, (Reported) Omeprazole (Omeprazole) 20 Mg Capsule.dr, 20 MG PO QHS, (Reported) Potassium Chloride (Potassium Chloride) 10 Meq Tab.er.prt, 10 MEQ PO DAILY, (Reported) Warfarin Sodium (Warfarin Sodium) 2 Mg Tablet, 2 MG PO DAILY Scheduled PRN Lidocaine HCl (Aspercreme Lidocaine) 73 Ml Liqd.estefany, 1 DOSE TOP QID PRN for PAIN, (Reported) APPLY TO AREAS OF PAIN Polyethylene Glycol 3350 (Miralax) 119 Gm Powder, 17 GM PO DAILY PRN for CONSTIPATION, (Reported) [Biotene] , 1 LOZENGE PO PRN PRN for DRY MOUTH, (Reported) Allergies Coded Allergies: No Known Allergies (Verified Allergy, Unknown, 08/30/18) EDGAR BETTS D.O. Mar 19, 2020 11:28
[2020-03-19] MEDS ORDERED: WARFARIN SOD 2MG TAB PO SCH (17:00)
[2020-03-20] MEDS ORDERED: WARFARIN SOD 2MG TAB PO SCH (17:00)
--- NOTE | 2020-03-22 09:00 | ECHO ---
DATE OF PROCEDURE: 03/17/2020 Age: 84 Gender: Female REFERRING PHYSICIAN: Katrina Tomas DO REASON FOR STUDY: Shortness of breath. PATIENT LOCATION: Room 4207. 2D MEASUREMENTS: IVS 0.93 cm LV 4.2 cm LVPW 1.1 cm LA 4.3 cm Aorta 2.6 cm RV 1.9 cm DOPPLER MEASUREMENT Peak velocity across the aortic valve 1.4 m/sec Peak velocity across the LVOT 0.87 m/sec Mitral E 1.3 Maximum tricuspid valve velocity 3.6 m/sec 2D COMMENTS: 1. Normal left ventricle size and wall thickness. Left ventricular systolic function is normal, estimated at 60% to 65%. 2. Mildly enlarged left atrium. The right atrium also appeared to be mildly enlarged. Normal right ventricle. 3. The atrial septum appeared to be normal without evidence of defect or shunt. 4. Normal aortic root. 5. Trace pericardial effusion noted. No evidence of cardiac tamponade. 6. Mildly calcified aortic valve with normal leaflet excursion. Mildly calcified mitral annulus with normal anterior mitral valve leaflet motion. Normal tricuspid valve and pulmonic valve. The proximal pulmonary artery branches were not well visualized. 7. The inferior vena cava was normal in size, central venous pressure may be normal. Doppler detects moderate mitral regurgitation and [id number] tricuspid regurgitation. The calculated pulmonary artery systolic pressure varies between 50 to 60 mmHg. Mild pulmonic regurgitation also detected. IMPRESSION: 1. Normal global left ventricular systolic function. Assessment of the left ventricular diastolic function was indeterminate. 2. Mildly dilated left atrium with moderate mitral regurgitation and mitral annulus calcification. 3. Moderately severe tricuspid regurgitation with moderately severe pulmonary hypertension and dilated right atrium. 4. Mild pulmonic regurgitation. 5. Trace pericardial effusion. No evidence of cardiac tamponade. The above findings were discussed with the patients hospitalist. JESÚS
[2020-03-23 16:13] LABS: CHLAMYDIA PNEUMONIAE IgM < 1:10 (< 1:10); CHLAMYDIA PSITTACI IgM < 1:10 (< 1:10); CHLAMYDIA TRACHOMATIS IgM < 1:10 (< 1:10); L PNEUMOPHILIA 1-6 IgG <1:128 (<1:128); L PNEUMOPHILIA 1-6 IgM < 1:16 (< 1:16); MYCOPLASMA PNEUMONIAE IgG 138 U/mL (0-99); MYCOPLASMA PNEUMONIAE IgM <770 U/mL (0-769)
== END 2020-03-19 16:00 | DRG 292 ==
LOC: EDBD 07:15 → M ED 07:15 → M ED INP 10:52 → ENRESERV 12:57 → M MSPAV 15:19
PROVIDERS: ADMIT Internal Medicine; ATTEND Internal Medicine
DX: I11.0 Hypertensive heart disease with heart failure (principal); N39.0 Urinary tract infection, site not specified; I48.20 Chronic atrial fibrillation, unspecified; I50.9 Heart failure, unspecified; J44.9 Chronic obstructive pulmonary disease, unspecified; J84.10 Pulmonary fibrosis, unspecified; B96.29 Other Escherichia coli [E. coli] as the cause of diseases classified elsewhere; F41.9 Anxiety disorder, unspecified; F32.9 Major depressive disorder, single episode, unspecified; D64.9 Anemia, unspecified; N31.9 Neuromuscular dysfunction of bladder, unspecified; Z79.899 Other long term (current) drug therapy; Z79.01 Long term (current) use of anticoagulants; E78.5 Hyperlipidemia, unspecified; K57.30 Diverticulosis of large intestine without perforation or abscess without bleeding; M81.0 Age-related osteoporosis without current pathological fracture; M19.90 Unspecified osteoarthritis, unspecified site

== ENCOUNTER → 2020-04-05 | Outpatient (REF) | payer MEDICARE ==
[~2020-04-05] MED LIST changes: +ASPE4LIQ TOP; +BIOTENE PO; +BISO5TAB14 PO; +CALCCAP4 PO; +CETI-24 PO; +CIPR-249 PO; +CIPR500T3 PO; +CRAN400C PO; +D31000TA2 PO; -E-Z-GAS II EFFERVESCENT PACKET (SODIUM BICARB./CITRIC ACID/SIMETHICONE) As Ordered ONE; -E-Z-HD 98% w/w 340GM SUSP BTL As Ordered ONE; -E-Z-PAQUE 96% w/w SUSP 176GM BTL As Ordered ONE; +EMOL85CR TOP; +FLUO20CA22 PO; +FURO20TA2 PO; +FURO40TA2 PO; +GABA-1171 PO; +GABA-843 PO; +GINK60CA2 PO; +JANT2TAB PO; +MIRA3350 PO; +OMEP1CAP73 PO; +POTA10TA17 PO; +TYLE650T38 PO; +WARF4TAB51 PO; +XALA0.007 OS
[2020-04-05 14:13] LABS: HEMATOCRIT 41.2 % (36.0-47.0); HEMOGLOBIN 12.7 g/dl (12.0-15.5); MEAN CORPUSCULAR HEMOGLOBIN 28.3 pg (27.0-33.0); MEAN CORPUSCULAR HGB CONC 30.8 g/dl (32.0-36.5); PLATELET COUNT, AUTOMATED 192 10^3/uL (150-450); RED BLOOD COUNT 4.48 10^6/uL (4.00-5.40)
[2020-04-05 14:26] LABS: CALCIUM LEVEL 8.8 MG/DL (8.8-10.2); CREATININE FOR GFR 0.95 MG/DL (0.55-1.30); MAGNESIUM LEVEL 2.1 MG/DL (1.8-2.4); POTASSIUM SERUM 4.9 MEQ/L (3.5-5.1)
== END ==
LOC: M LAB REF 13:56
PROVIDERS: ATTEND Internal Medicine
DX: I48.91 Unspecified atrial fibrillation (principal); R60.0 Localized edema; I50.9 Heart failure, unspecified

== ENCOUNTER → 2020-05-25 | Outpatient (REF) | payer MEDICARE ==
[~2020-05-25] MED LIST changes: +GABA-282 PO; -GABA-843 PO
[2020-05-25 18:51] LABS: C REACTIVE PROTEIN QUANTITATIV 1.39 MG/DL (0.00-0.30); RHEUMATOID FACTOR QUANT < 10.0 IU/ML (<15.0)
== END ==
LOC: M LAB REF 16:46
PROVIDERS: ATTEND Nurse Practitioner Adult Health
DX: R06.02 Shortness of breath (principal)

== ENCOUNTER → 2020-06-03 | Outpatient (CLI) | payer MEDICARE ==
--- NOTE | 2020-06-03 08:42 | REP ---
INDICATION: SOB. COMPARISON: Comparison is made with prior chest CT study March 16, 2020.. More remote comparison study is dated August 24, 2015. TECHNIQUE: Helical scanning is acquired. 3 mm axial images are generated. Coronal and sagittal MPR and coronal MIP images are generated. FINDINGS: Digital preliminary sap bods developer radiograph demonstrates a prominent heart. A posterior diaphragmatic hernia is again noted on the right. Trans Arauz some retroperitoneal fat. This is unchanged. There is no evidence of pleural or pericardial effusion. Four-chamber cardiomegaly is again observed. Mitral annular calcification and coronary artery vascular calcification are observed. Central pulmonary arteries are somewhat prominent raising question of pulmonary arterial hypertension. The ascending aorta measures 3.6 cm in AP dimension and the main pulmonary artery measures 3.5 cm in greatest diameter. There are scattered normal sized mediastinal lymph nodes. In the lung parenchyma, again noted is a fairly extensive multifocal bilateral pattern of mixed ground-glass opacity and interstitial fibrotic changes throughout the lung leonardo. This is essentially unchanged from most recent study of March 16, 2020 but considerably progressed when compared with the [address] study. There is some volume loss in the lingula with distal bronchiectasis which is unchanged from either the 2016 prior study. There is bronchial wall calcification but no other definite evidence of bronchiectasis. No new area of consolidation is seen. Chronic wedge compression deformities are again seen in the lower thoracic spine unchanged. No acute bony abnormality is appreciated. In the upper abdomen, normal adrenal glands are seen. There is a small cyst in the right kidney. Extensive vascular calcification is noted. 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 This is essentially unchanged from most recent prior study of March 16, 2020 but more prominent than on the [address] studies. Cardiomegaly is again observed. Centrally prominent main pulmonary arteries raise question of pulmonary arterial hypertension. This is also unchanged. <Electronically signed by Masoud Mayfield > 06/03/20 [id number]
== END ==
LOC: M RAD 07:40
PROVIDERS: ATTEND Nurse Practitioner Adult Health
DX: R91.8 Other nonspecific abnormal finding of lung field (principal); R06.02 Shortness of breath

== ENCOUNTER → 2020-06-24 | Outpatient (REF) | payer MEDICARE ==
[2020-06-25 13:52] LABS: PERCENT SATURATION 12.7 % (13.2-45.0)
== END ==
LOC: M LAB REF 11:23
PROVIDERS: ATTEND Internal Medicine
DX: D64.9 Anemia, unspecified (principal)

== ENCOUNTER → 2020-07-30 | Outpatient (CLI) | payer MEDICARE ==
[~2020-07-30] MED LIST changes: +E-Z-GAS II EFFERVESCENT PACKET (SODIUM BICARB./CITRIC ACID/SIMETHICONE) As Ordered ONE; +E-Z-HD 98% w/w 340GM SUSP BTL As Ordered ONE; +E-Z-PAQUE 96% w/w SUSP 176GM BTL As Ordered ONE
--- NOTE | 2020-07-30 16:52 | REP ---
INDICATION: DYSPHAGIA W/ WT LOSS. COMPARISON: None. TECHNIQUE: The procedure was performed under the direct supervision of Dr. Schofield. The images were reviewed with Dr. cShofield. Liquid barium was administered in the erect and right and left lateral recumbent positions. 1 minutes of fluoro time was utilized for this procedure. FINDINGS: The mica miner film shows no organomegaly or pathological mass is. The intestinal gas pattern is nonspecific. The oral and pharyngeal stages of deglutition are unremarkable. Esophageal transport is prompt and efficient and there is no esophagitis, stricture, mucosal ring or hiatal hernia. Gastroesophageal reflux is not demonstrated on this examination. The stomach is grossly normal. The rugal folds are smooth and regular. There is no evidence of gastritis neoplasm or ulcer disease. The duodenum is grossly normal. The mucosal folds are smooth and regular. There is no evidence of duodenitis, pancreatitis, peptic ulcer disease or neoplasm. The visualized portion of the proximal small bowel appears normal in course and caliber. IMPRESSION: Essentially unremarkable single contrast upper GI examination. <Electronically signed by Jamshid Torres > 07/30/20 155 <Electronically signed by Ru Schofield > 07/30/20 [id number]
== END ==
LOC: M RAD 09:29
PROVIDERS: ATTEND Internal Medicine
DX: R62.7 Adult failure to thrive (principal); R13.10 Dysphagia, unspecified

== ENCOUNTER → 2021-08-09 | Outpatient (REF) | payer MEDICARE ==
[~2021-08-09] MED LIST changes: -D31000TA2 PO; -E-Z-GAS II EFFERVESCENT PACKET (SODIUM BICARB./CITRIC ACID/SIMETHICONE) As Ordered ONE; -E-Z-HD 98% w/w 340GM SUSP BTL As Ordered ONE; -E-Z-PAQUE 96% w/w SUSP 176GM BTL As Ordered ONE; +VITA100093 PO
== END ==
LOC: M LAB REF 12:30
PROVIDERS: ATTEND Internal Medicine
DX: N39.0 Urinary tract infection, site not specified (principal)

== ENCOUNTER → 2022-01-06 | Outpatient (REF) | payer MEDICARE ==
[~2022-01-06] MED LIST changes: +POTA-150 PO; -POTA10TA17 PO
== END ==
LOC: M LAB REF 17:27
PROVIDERS: ATTEND Internal Medicine
DX: N39.0 Urinary tract infection, site not specified (principal)